=== PATIENT | male | born 1935 | race African-American/Black ===

== ENCOUNTER 2020-12-09 09:35 | Outpatient (CLI) | payer MEDICARE, SELFPAY ==
--- NOTE | 2020-12-09 10:59 | ECG_ITS ---
Measurements Intervals [place] Rate: 71 P: 62 DC: 172 QRS: 2 QRSD: 79 T: -20 QT: 374 QTc: 408 Interpretive Statements SINUS RHYTHM ATRIAL PREMATURE COMPLEXES ANTEROSEPTAL INFARCT, AGE INDETERMINATE BORDERLINE T WAVE ABNORMALITY- INFERIOR LEADS BASELINE ARTIFACT- I, II, III, AVR, AVL, AVF ABNORMAL ECG Electronically Signed On 12-09-2020 12:03:48 POST EXCHANGE MANAGER by Abhishek Bridges D.O.
[2020-12-09 11:47] LABS: Hemoglobin A1C 6.7 % (<5.7)
[2020-12-09 11:48] LABS: Anion Gap 4 mmol/L (8-16); Blood Urea Nitrogen 12 mg/dL (9-20); Calcium 8.8 mg/dL (8.4-10.2); Carbon Dioxide 35 mmol/L (22-30); Chloride 104 mmol/L (98-107); Estimated Glomerular Filt Rate > 60; Glucose 199 mg/dL (75-110); Potassium 3.3 mmol/L (3.4-5.0); Sodium 143 mmol/L (137-145)
== END 2020-12-09 09:36 | disposition home or self-care (01) ==
LOC: ANHSURGERY 09:41
PROVIDERS: Anesthesiology; PCP Family Medicine; Visit Provider Urology
DX: N52.9 Male erectile dysfunction, unspecified (principal); I10 Essential (primary) hypertension; E11.9 Type 2 diabetes mellitus without complications; Z01.818 Encounter for other preprocedural examination; R94.31 Abnormal electrocardiogram [ECG] [EKG]
CPT/HCPCS: 36415; 80048; 83036; 87086; 87088; 93005